=== PATIENT | female | born 1980 | race African-American/Black ===

== ENCOUNTER 2023-02-07 10:41 | Emergency (ER) | payer MEDICAID ==
[~2023-02-07] VITALS: Ht 154 cm; Wt 142.0 kg
[2023-02-07] MEDS ORDERED: IBUPROFEN 800 MG (MOTRIN) TAB PO STA (12:22)
--- NOTE | 2023-02-07 12:28 | ED Hip Pain/Injury ---
General Chief Complaint: Hip/Pelvic Problems Stated Complaint: HIP | R LEG PX Nursing Triage Note: RIGHT HIP PAIN STARTING 1 DAY AGO. DENIES INJURY. USING A WALKER Source: patient Exam Limitations: no limitations History of Present Illness Date Seen by Provider: February 07, 2023 Time Seen by Provider: 12:15 Initial Comments Here with complaint of right hip pain that started about a day ago. Denies specific injury. Has had intermittent hip pain on that side previously. Does report history of HIV as well as blood pressure problems and diet-controlled diabetes. States that she has had to use a walker for the last day because of the pain. Pain is worse when standing and better when resting or laying back. States the pain feels like it is right in the hip bone. Timing/Duration: yesterday Severity: moderate Location: hip (R) Method of Injury: unknown Modifying Factors: Improves With Immobilization; Worse With Movement Associated Symptoms: No muscle aches, No pain radiating to knees; trouble walking Allergies and Home Medications Allergies Coded Allergies: cantaloupe (Verified Allergy, Severe, SOA, 02/07/23) Patient Home Medication List Home Medication List Reviewed: Yes Review of Systems Constitutional: see HPI; No chills, No fever Respiratory: no symptoms reported Cardiovascular: no symptoms reported Musculoskeletal: joint pain; No muscle stiffness, No muscle cramps Psychiatric/Neurological: No Symptoms Reported Past Fshvova-Vreucf-Kmawqh Hx Patient Social History Tobacco Use?: Yes Smoking Status: Current Everyday Smoker Substance use?: No Alcohol Use?: No Immunizations Up To Date First/Initial COVID19 Vaccinat: UNKNOWN 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 oz. kg; 59.00 BMI Method: General Appearance: No Apparent Distress, WD/WN Cardiovascular: Regular Rate, Rhythm, No Murmur Respiratory: Lungs Clear, Normal Breath Sounds Extremity: Pelvis Stable, Other (Pain to the area of the right hip especially with internal and external rotation. No shortening. Patient is obese and difficult to palpate bony structures but points to hip joint.) Neurologic/Psychiatric: Alert, Oriented x3 Progress/Results/Core Measures Results/Orders My Orders Orders - MAMTA JENNINGS MD Pelvis With Right Hip 2-3views (02/07/23 12:22) Hydrocodone/Apap 5/325 Tablet (Lortab 5 (02/07/23 12:30) Ibuprofen Tablet (Motrin Tablet) (02/07/23 12:22) Vital Signs/I&O 02/07/23 11:16 Temp 36.7 Pulse 67 Resp 16 B/P (MAP) 161/101 (121) Pulse Ox 100 O2 Delivery Room Air Blood Pressure Mean: 121 Progress Progress Note : Progress Note Seen and evaluated. X-ray right hip and pelvis ordered. Hydrocodone 5/325 1 tab p.o. given and ibuprofen 800 mg p.o. given. Monitor patient. 1320: Hip x- ray shows no acute fracture on my interpretation. Radiology reports degeneration right greater than left. I do believe this is likely the cause. We will initiate outpatient steroid as well as a few days of pain meds and she will follow-up with her doctor for referral to orthopedics for further evaluation. Discharged home with return precautions. Patient verbalized understanding instructions and agreement with plan. OTC medications discussed. Diagnostic Imaging Diagonstic Imaging: Xray Plain Films/CT/US/NM/MRI: pelvis, hip Comments [facility], [place] NAME: NANY GERBER [facility] REC#: [id number] PT STATUS: REG ER : 1980 PHYSICIAN: MAMTA JENNINGS MD ADMIT DATE: 02/07/23/ER Draft Date of Exam:02/07/23 PELVIS WITH RIGHT HIP 2-3VIEWS INDICATION: Pelvic pain. FINDINGS: AP pelvis and two-view right hip performed. Arthritic changes to the bilateral hips, slightly greater right than left. No bony avulsion, articular collapse, or other fracture pattern. No acute finding. IMPRESSION: Right greater than left hip arthritis but no fracture or acute bone or joint pathology apparent radiographically. Dictated on workstation # [id number] Dict: 02/07/23 1258 Trans: 02/07/23 1301 [id number] Interpreted by: RACHEAL MENON Electronically signed by: Reviewed: Reviewed by Me Departure Impression Primary Impression: Right hip pain Disposition: HOME, SELF-CARE Condition: Stable Departure-Patient Inst. Decision time for Depature: 13:25 Referrals: RICKEY WASHBURN MD (PCP/Family) Primary Care Physician Patient Instructions: Hip Pain (DC) Add. Discharge Instructions: All discharge instructions reviewed with patient and/or family. Voiced understanding. Take medications as directed. If you are not taking the prescribed pain medicine, you may take Tylenol/acetaminophen 1000 mg every 6-8 hours as needed for pain. Do not take both at the same time as they both have acetaminophen in them. Follow-up with your doctor for recheck and further evaluation and for referral to orthopedics due to the concerns of degeneration of the right hip. Scripts Hydrocodone/Acetaminophen (Hydrocodone-Acetamin 5-325 mg) 5 Mg-325 Mg Tablet 1 TAB PO Q6H PRN for PAIN-MODERATE (5-7) for 7 Days, #8 TAB 0 Refills Prov: MAMTA JENNINGS MD 02/07/23 Prednisone (Prednisone) 20 Mg Tab 40 MG PO DAILY, #6 TAB 0 Refills Prov: MAMTA JENNINGS MD 02/07/23 MAMTA JENNINGS MD February 07, 2023 12:28
[2023-02-07] MEDS ORDERED: HYDROcodone/APAP 5 MG/325 MG (LORTAB) TAB PO ONE (12:30)
--- NOTE | 2023-02-07 13:02 | Diagnostic Imaging Report ---
INDICATION: Pelvic pain. FINDINGS: AP pelvis and two-view right hip performed. Arthritic changes to the bilateral hips, slightly greater right than left. No bony avulsion, articular collapse, or other fracture pattern. No acute finding. IMPRESSION: Right greater than left hip arthritis but no fracture or acute bone or joint pathology apparent radiographically. Dictated by: Dictated on workstation # [id number]
[2023-02-07 13:14] VITALS: BP 136/92
[2023-02-07] MEDS ORDERED: ACHD5005 PO (13:27)
[2023-02-07] MEDS ORDERED: PRD20T PO (13:27)
== END 2023-02-07 13:40 | disposition home or self-care (01) ==
LOC: ER 10:48
DX: M25.551 Pain in right hip (principal); F17.200 Nicotine dependence, unspecified, uncomplicated; E66.9 Obesity, unspecified; Z68.43 Body mass index [BMI] 50.0-59.9, adult

== ENCOUNTER 2023-06-20 11:30 | Emergency (ER) | payer OTHER, MEDICAID ==
[~2023-06-20] VITALS: Ht 154 cm; Wt 104.3 kg
[~2023-06-20 11:30] MED LIST: ACHD5005 PO; PRD20T PO
[2023-06-20] MEDS ORDERED: HYDROcodone/ACETAMINOPHEN 5 MG/325 MG TABLET PO ONE (12:15)
--- NOTE | 2023-06-20 12:19 | ED Lower Extremity ---
General Chief Complaint: Lower Extremity Stated Complaint: LT FOOT PAIN Nursing Triage Note: PT PRESENTS TO ED VIA EMS FROM HOME WITH COMPLAINTS OF L FOOT PAIN X 2 DAYS WITH NO KNOWN INJURY Source: patient Exam Limitations: no limitations (MARTINEZ MURRAY) History of Present Illness Date Seen by Provider: Jun 20, 2023 Time Seen by Provider: 12:17 Initial Comments Patient is a 42-year-old female with a history of diabetes, hypertension who presents to ED with left foot pain. Pain started 2 days ago. Sharp pain throughout the top part of her foot and bottom. She denies of any specific injury. Pain is worse with movement or when she walks. Difficulty moving her toes. denies of any pain on her right foot. She does have neuropathy in her upper extremities currently on gabapentin. She denies any swelling or bruising, redness. Denies of any recent travels. Denies calf pain or calf swelling. She states she has not been able to walk. Denies taking anything for pain. Denies of any history of gout. Patient denies fever, chills, chest pain, shortness of breath, cough (MARTINEZ MURRAY) Allergies and Home Medications Allergies Coded Allergies: cantaloupe (Verified Allergy, Severe, SOA, 02/07/23) Patient Home Medication List Home Medication List Reviewed: Yes (MARTINEZ MURRAY) Hydrocodone/Acetaminophen (Hydrocodone-Acetamin 5-325 mg) 5 Mg-325 Mg Tablet, 1 TAB PO Q6H PRN for PAIN-MODERATE (5-7) Prescribed by: MAMTA JENNINGS on 02/07/23 1327 Hydrocodone/Acetaminophen (Hydrocodone-Acetamin 5-325 mg) 5 Mg-325 Mg Tablet, 1 TAB PO Q4H PRN for PAIN-MODERATE (5-7) Prescribed by: SACHIN DUMONT on 06/20/23 1300 Indomethacin (Indomethacin) 50 Mg Capsule, 50 MG PO TID Prescribed by: SACHIN DUMONT on 06/20/23 1300 Prednisone (Prednisone) 20 Mg Tab, 40 MG PO DAILY Prescribed by: MAMTA JENNINGS on 02/07/23 1327 Review of Systems Constitutional: No chills, No diaphoresis EENTM: No ear pain, No blurred vision, No double vision Respiratory: No cough, No dyspnea on exertion Cardiovascular: No chest pain Gastrointestinal: No abdominal pain, No diarrhea, No nausea, No vomiting Genitourinary: No decreased output, No discharge Musculoskeletal: No back pain; joint pain; No joint swelling Skin: No change in color, No change in hair/nails (MARTINEZ MURRAY) All Other Systems Reviewed Negative Unless Noted: Yes (MARTINEZ MURRAY) Past Fewxkls-Ykjvrh-Woslbt Hx Patient Social History Tobacco Use?: Yes Tobacco type used: Cigarettes Smoking Status: Current Everyday Smoker Substance use?: No Alcohol Use?: No Pt feels they are or have been: No (MARTINEZ MURRAY) Immunizations Up To Date First/Initial COVID19 Vaccinat: UNKNOWN Second COVID19 Vaccination Kenneth: UNKNOWN Third COVID19 Vaccination Date: UNKNOWN (MARTINEZ MURRAY) Past Medical History Surgery/Hospitalization HX: HTN, DM2 Cardiac: Yes Chronic Edema/Swelling, Hypertension HIV/AIDS: Yes Musculoskeletal: Yes Arthritis (MARTINEZ MURRAY) Physical Exam Vital Signs Vital Signs - First Documented 06/20/23 11:36 Temp 36.7 Pulse 99 Resp 16 B/P (MAP) 187/98 (127) Pulse Ox 99 (JOSE R ORTIZ MD) Vital Signs Capillary Refill : Less Than 3 Seconds (MARTINEZ MURRAY) Height, Weight, BMI Height: '" Weight: lbs. oz. kg; 43.00 BMI Method: General Appearance: WD/WN, no apparent distress HEENT: PERRL/EOMI, normal ENT inspection, TMs normal, pharynx normal Neck: non-tender, full range of motion, supple Cardiovascular: regular rate, rhythm, no edema, no gallop, no JVD Respiratory: chest non-tender, lungs clear, normal breath sounds, no respiratory distress, no accessory muscle use Gastrointestinal: normal bowel sounds, non tender, soft, no organomegaly Hips: bilateral hip non-tender, bilateral hip normal inspection, bilateral hip normal range of motion Knees: bilateral knee non-tender, bilateral knee normal inspection, bilateral knee normal range of motion Ankles: bilateral ankle non-tender, bilateral ankle normal inspection, bilateral ankle no evidence of injury Feet: left foot other (Left dorsum foot tenderness, left plantar foot tenderness. No swelling, bruising or redness. Range of motion the digits intact. Cap refill less than 2. Dorsalis pedis +2.) (MARTINEZ MURRAY) Progress/Results/Core Measures Results/Orders Vital Signs/I&O 06/20/23 06/20/23 11:36 13:10 Temp 36.7 36.7 Pulse 99 99 Resp 16 16 B/P (MAP) 187/98 (127) 187/98 Pulse Ox 99 99 (JOSE R ORTIZ MD) Blood Pressure Mean: 127 Departure Communication (PCP) History of gout right foot currently on Lasix. Denies taking any NSAIDs. Complaining of left dorsum and plantar foot pain. Denies of any specific injury. She has no calf pain or swelling. She does have dependent edema bilateral lower extremities. History of hypertension and diabetes. No signif icant swelling may be very minimal erythema. Tenderness throughout the dorsum foot and plantar foot. Dorsalis pedis +2, posterior tibialis +2. Range of motion of the digits intact. Cap refill less than 2. Does not appear vascular in nature. X-ray was performed which showed degenerative changes throughout the foot. Suspect arthritis versus gout. She did receive a dose of pain medication here. Will discharge with indomethacin and hydrocodone as needed. Boot for comfort. Recommend orthopedic follow-up in 7 days for reevaluation. Suggest holding the Lasix. Avoid any meat or seafood or alcohol consumption's. She has a history of gout with similar type pain in her right foot. Do not take any other NSAIDs with indomethacin. If any worsening symptoms return back to ED for further evaluation. (MARTINEZ MURRAY) Impression Primary Impression: Foot pain Disposition: 01 HOME, SELF-CARE Condition: Stable Departure-Patient Inst. Decision time for Depature: 12:56 (MARTINEZ MURRAY) Referrals: RICKEY WASHBURN MD (PCP/Family) Primary Care Physician Patient Instructions: Foot Sprain (DC) Add. Discharge Instructions: Boot for comfort. Orthopedic follow-up in 7 days. Take pain medication as prescribed. Suggest holding your Lasix. Avoid alcohol consumption, meat seafood consumption. All discharge instructions reviewed with patient and/or family. Voiced understanding. Scripts Hydrocodone/Acetaminophen (Hydrocodone-Acetamin 5-325 mg) 5 Mg-325 Mg Tablet 1 TAB PO Q4H PRN for PAIN-MODERATE (5-7), #8 TAB Prov: MARTINEZ MURRAY 06/20/23 Indomethacin (Indomethacin) 50 Mg Capsule 50 MG PO TID for 5 Days, #15 CAP Prov: MARTINEZ MURRAY 06/20/23 ATTENDING PHYSICIAN NOTE: I was physically present as attending physician in the emergency department during the care of this patient, but I was not directly involved in the decision making or delivery of care for this patient. (JOSE R ORTIZ MD) MARTINEZ MURRAY Jun 20, 2023 12:19 JOSE R ORTIZ MD Jun 21, 2023 09:34
--- NOTE | 2023-06-20 12:47 | Diagnostic Imaging Report ---
INDICATION: Dorsal foot pain. AP, oblique and lateral views of left foot are obtained. There is extensive hypertrophic enthesopathy along the dorsum of the midfoot, however no fracture or bone destruction is identified. There are mild posterior and plantar calcaneal enthesophytes as well. Mild joint space narrowing is noted at the 1st metatarsal-phalangeal joint. Study was performed without weightbearing, however the calcaneal pitch is suggestive of possible pes cavus. IMPRESSION: Rather pronounced degenerative-type enthesopathy along the dorsum of the midfoot with degenerative changes elsewhere in the foot. This could in part be related to bony alignment. Weight-bearing follow-up study may be useful for quantification. Dictated by: Dictated on workstation # [id number]
[2023-06-20] MEDS ORDERED: ACHD5005 PO (13:00)
[2023-06-20] MEDS ORDERED: INDO50CA82 PO (13:00)
[2023-06-20 13:10] VITALS: BP 187/98
== END 2023-06-20 13:10 | disposition home or self-care (01) ==
LOC: EDUNIT# 11:30 → ER 11:31
DX: M79.672 Pain in left foot (principal); E11.40 Type 2 diabetes mellitus with diabetic neuropathy, unspecified; R60.0 Localized edema; F17.210 Nicotine dependence, cigarettes, uncomplicated; Z79.899 Other long term (current) drug therapy
CPT/HCPCS: 73630; 99283; L2114